=== PATIENT | female | born 1980 | race Caucasian/White ===

== ENCOUNTER 2016-10-07 08:07 | Emergency (ER) | payer MEDICARE, MEDICAID ==
[2016-10-07 08:14] VITALS: BP 131/81
[2016-10-07] MEDS ORDERED: Albuterol/Ipratropium NEB.SOL* Albuterol 2.5 MG/Ipratropium 0.5 MG 3 ML INH ONE (08:18)
--- NOTE | 2016-10-07 08:32 | UC ---
Respiratory Complaint HPI - HPI Summary HPI Summary: She has hx of wheezing and possible copd. she is a smoker. she has been on albuterol and steroid inhaler but ran out of both about 2-3 days ago. She gets these medications from urgent care and denies having a regular PCP. Her last exacerbation was months ago and she had remaining prednisone which she has taken today for a total of 60mg. She denies prior PE or dvt. Father has a hx of dvt but that is the only family member with clots. She has not had any prolonged car or plane trips. She is not on OCP. she denies productive cough or hemoptysis. no fever or chest pain. no hx of heart disease. - History of Current Complaint Chief Complaint: UCRespiratory Stated Complaint: TROUBLE BREATHING Time Seen by Provider: 10/07/16 08:18 Hx Obtained From: Patient Hx Last Menstrual Period: 09/28/16 ?: No Onset/Duration: Gradual Onset Timing: Constant Severity Initially: Mild Severity Currently: Moderate Character: Cough: Nonproductive Aggravating Factors: Deep Breaths Alleviating Factors: Nothing Associated Signs And Symptoms: Positive: Dyspnea, Wheezing, Hoarseness. Negative: Fever, Chills, Pleuritic Chest Pain, Hemoptysis, Dizziness, Calf Pain , Calf Swelling, Edema - Risk Factors Pulmonary Embolism Risk Factors: Smoking - Allergies/Home Medications Allergies/Adverse Reactions: Allergies Allergy/AdvReac Type Severity Reaction Status Date / Time Sumatriptan [From Imitrex] Allergy Severe throat Verified 10/07/16 08:14 closing Cefaclor [From Ceclor] Allergy Mild Rash Verified 10/07/16 08:14 Latex Allergy Rash Verified 10/07/16 08:14 Home Medications: Home Medications predniSONE TAB* [Deltasone TAB*] 60 mg PO DAILY 10/07/16 [History Confirmed ] PMH/Surg Hx/FS Hx/Imm Hx Endocrine History Of: Denies: Diabetes, Thyroid Disease, Hyperthyroidism, Hypothyroidism, Dyslipidemia Cardiovascular History Of: Denies: Cardiac Disorders, Hypertension, Pacemaker/ICD, Myocardial Infarction , Congestive Heart Failure, Atrial Fibrillation, Deep Vein Thrombosis, Bleeding Disorders Respiratory History Of: Reports: COPD, Asthma, Pneumonia - Last episode was June of 2015. Denies: Bronchitis GI/ History Of: Denies: Gastroesophageal Reflux, Ulcer, Gastrointestinal Bleed, Gall Bladder Disease, Kidney Stones, Diverticulitis, Renal Disease, Urosepsis Neurological History Of: Denies: TIA, CVA, Dementia, Seizures, Migraine Psychological History Of: Reports: Anxiety - She denies any anxiety or depression or other mental illness., Depression Denies: Bipolar Disorder, Schizophrenia, Post Traumatic Stress Disorder Cancer History Of: Denies: Lung Cancer, Colorectal Cancer, Breast Cancer, Prostate Cancer, Cervical Cancer Other History Of: Negative For: HIV, Hepatitis B, Hepatitis C - Surgical History Surgical History: Yes Surgery Procedure, Year, and Place: Tubal Ligation, 2009, [facility] - Family History Known Family History: Positive: Cardiac Disease, Hypertension, Diabetes, Respiratory Disease - Mom with COPD, Other - COPD Family History: Mother had COPD - Social History Alcohol Use: None Substance Use Type: None Substance Use Comment - Amount & Last Used: Denies use of prescription painkillers. Smoking Status (MU): Light Every Day Tobacco Smoker Type: Cigarettes Amount Used/How Often: 1/5 PPD Length of Time of Smoking/Using Tobacco: 22 Years Have You Smoked in the Last Year: Yes Household Exposure Type: Cigarettes - Immunization History Most Recent Influenza Vaccination: 02/20/15 Hx Tetanus, Diphtheria Vaccination: Yes Vaccination Up to Date: Yes Review of Systems All Other Systems Reviewed And Are Negative: Yes Physical Exam Triage Information Reviewed: Yes Appearance: Pain Distress - she has visible tachypnea without severe distress. She has no retractions and is able to talk in full sentences. Vital Signs: Initial Vital Signs Temp 98.5 F 10/07/16 08:11 Pulse 100 10/07/16 08:11 Resp 18 10/07/16 08:11 BP 131/81 10/07/16 08:11 Pulse Ox 100 10/07/16 08:11 Vital Signs Reviewed: Yes Eyes: Negative: Conjunctiva Clear, Conjunctiva Inflamed ENT: Positive: Normal ENT inspection, Hearing grossly normal. Negative: Pharyngeal erythema, Nasal congestion Neck exam: Normal Neck: Positive: Supple, Nontender, No Lymphadenopathy, Other: - no jvd. Respiratory: Positive: Chest non-tender, No accessory muscle use, Wheezing, Expiration, Other: - she is using nebulizer and is moving good air page. HR currently 100.. Negative: Decreased breath sounds, Accessory muscle use, Crackles, Rhonchi, Stridor Cardiovascular: Positive: No Murmur, Pulses Normal, Brisk Capillary Refill, Tachycardia Abdominal Exam: Normal Abdomen Description: Positive: Nontender, No Organomegaly, Soft Musculoskeletal Exam: Normal Musculoskeletal: Positive: Strength Intact, ROM Intact, No Edema, Other: - page calves no swelling, tenderness, venous engorgement and neg homans. Neurological: Positive: Alert, Muscle Tone Normal. Negative: Fatigued Psychological Exam: Normal Skin Exam: Normal UC Diagnostic Evaluation - Laboratory O2 Sat by Pulse Oximetry: 100 Respiratory Course/Dx - Course Course Of Treatment: we have considered PE or cardiac etiology but without any recent travel or very significant risk factors for PE, this is highly unlikely. she states this feels similar to prior episode of chest tightness a few months ago. Without any cardiac ischemic equivalents besides the sob, this is not c/w with cardiac etiology as well. she feels better after breathing treament and we will treat her for acute bronchitis with reactive airway disease. she will return tomorrow for re evaluation as she has no pcp. i will make referral to pcp as well. - Differential Dx/Diagnosis Differential Diagnosis/HQI/PQRI: Airway Obstruction, Foreign Body, Aspiration, Asthma, Bronchitis, CHF, Pulmonary Edema, Exacerbation Of COPD, Influenza, Laryngitis, Lower Resp Infection, Pneumothorax, Pulmonary Embolism, Sinusitis, Tuberculosis Provider Diagnoses: reactive airway disease. wheezing. sob. Discharge - Discharge Plan Condition: Good Disposition: HOME Prescriptions: Albuterol 2.5MG/3ML (0.083%)* [Ventolin 2.5 MG/3 ML NEB.MICHAEL*] 2.5 mg INH Q6H PRN #20 neb.michael PRN Reason: Wheezing Albuterol HFA INHALER* [Ventolin HFA Inhaler*] 1 - 2 puff INH Q6H PRN #1 mdi PRN Reason: Wheezing Azithromyxin MANOLO (NF) [Z-Manolo (Zithromax) 250 mg tabs #6] 2 tab PO .TODAY, THEN 1 DAILY #6 tab Fluticasone-Salmeterol 250-50* [Advair Diskus 250-50*] 1 puff INH BID #1 diskus predniSONE TAB* [Deltasone TAB*] 40 mg PO DAILY #20 tab Referrals: [facility] [Outside] Cheo Hurst MD [Primary Care Provider] - 2 Days (If you still have him as your primary care provider. )
== END 2016-10-07 08:49 | disposition home or self-care (01) ==
LOC: UCCORT 08:07
DX: J45.909 Unspecified asthma, uncomplicated (principal); R06.02 Shortness of breath; Z88.1 Allergy status to other antibiotic agents; Z88.8 Allergy status to other drugs, medicaments and biological substances; Z91.040 Latex allergy status; F41.9 Anxiety disorder, unspecified; F17.210 Nicotine dependence, cigarettes, uncomplicated
CPT/HCPCS: 99212; A9270-GY; G0463

== ENCOUNTER 2017-01-19 11:01 | Emergency (ER) | payer MEDICARE, MEDICAID ==
[2017-01-19 11:53] VITALS: BP 114/76
--- NOTE | 2017-01-19 12:41 | UC ---
Respiratory Complaint HPI - HPI Summary HPI Summary: Pt presents with c/o chest congestion, cough, generalized malaise and history of COPD. P thas let RX for COPd medications end and is requesting refill on rescue inhaler and advair. Pt is scheduled to see new PCP in January - History of Current Complaint Chief Complaint: UCRespiratory Stated Complaint: COUGH Time Seen by Provider: 01/19/17 11:39 Hx Obtained From: Patient Hx Last Menstrual Period: 12/28/16 ?: No Onset/Duration: Gradual Onset, Lasting Weeks, Still Present, Worse Since - onset Timing: Constant Severity Initially: Mild Severity Currently: Moderate Character: Cough: Nonproductive Aggravating Factors: Exertion, Deep Breaths, Recumbent Position Alleviating Factors: Nothing Associated Signs And Symptoms: Positive: Wheezing, URI, Nasal Congestion - Risk Factors Pulmonary Embolism Risk Factors: Negative Cardiac Risk Factors: Smoking Pseudomonas Risk Factors: Chronic Lung Disease - COPD Tuberculosis Risk Factors: Smoking - Allergies/Home Medications Allergies/Adverse Reactions: Allergies Allergy/AdvReac Type Severity Reaction Status Date / Time Sumatriptan [From Imitrex] Allergy Severe throat Verified 01/19/17 11:39 closing Cefaclor [From Ceclor] Allergy Mild Rash Verified 01/19/17 11:39 Latex Allergy Rash Verified 01/19/17 11:39 Home Medications: Home Medications Venlafaxine CAP (NF) [Effexor CAP (NF)] 75 mg PO DAILY 01/19/17 [History Confirmed 01/19/17] Venlafaxine CAP (NF) [Effexor CAP (NF)] 150 mg PO DAILY 01/19/17 [History Confirmed 01/19/17] PMH/Surg Hx/FS Hx/Imm Hx Previously Healthy: No - COPD Respiratory History: COPD Psychological History: Depression Other History Of: Negative For: HIV, Hepatitis B, Hepatitis C - Surgical History Surgical History: Yes Surgery Procedure, Year, and Place: Tubal Ligation, 2009, [facility] - Family History Known Family History: Positive: Cardiac Disease, Hypertension, Diabetes, Respiratory Disease - Mom with COPD, Other - COPD Family History: Mother had COPD - Social History Occupation: Unemployed Lives: With Family Alcohol Use: None Substance Use Type: None, Prescribed Substance Use Comment - Amount & Last Used: Denies use of prescription painkillers. Smoking Status (MU): Light Every Day Tobacco Smoker Type: Cigarettes Amount Used/How Often: 3/4 PPD Length of Time of Smoking/Using Tobacco: 22 Years Have You Smoked in the Last Year: Yes Household Exposure Type: Cigarettes - Immunization History Most Recent Influenza Vaccination: 02/20/15 Hx Tetanus, Diphtheria Vaccination: Yes Vaccination Up to Date: Yes Review of Systems Constitutional: Fatigue Skin: Negative Eyes: Negative ENT: Other - nasal congestion Respiratory: Cough, Other - chest congestion Cardiovascular: Negative Gastrointestinal: Negative Genitourinary: Negative Motor: Negative Neurovascular: Negative Musculoskeletal: Negative Neurological: Negative Psychological: Negative All Other Systems Reviewed And Are Negative: Yes Physical Exam Triage Information Reviewed: Yes Appearance: Ill-Appearing Vital Signs: Initial Vital Signs Temp 98.8 F 01/19/17 11:45 Pulse 94 01/19/17 11:45 Resp 18 01/19/17 11:45 BP 114/76 01/19/17 11:45 Pulse Ox 96 01/19/17 11:45 Vital Signs Reviewed: Yes Eye Exam: Normal ENT Exam: Other ENT: Positive: Nasal congestion Dental Exam: Normal Neck exam: Normal Respiratory Exam: Other Respiratory: Positive: Decreased breath sounds - bilateral bases, Wheezing - throughout all Cardiovascular Exam: Normal Musculoskeletal Exam: Normal Neurological Exam: Normal Psychological Exam: Normal Skin Exam: Normal UC Diagnostic Evaluation - Laboratory O2 Sat by Pulse Oximetry: 96 Respiratory Course/Dx - Differential Dx/Diagnosis Differential Diagnosis/HQI/PQRI: Bronchitis, Exacerbation Of COPD Provider Diagnoses: bronchitis. exacerbation of COPD Discharge - Discharge Plan Condition: Stable Disposition: HOME Prescriptions: Albuterol HFA INHALER* [Ventolin HFA Inhaler*] 1 - 2 puff INH Q6H PRN #1 mdi PRN Reason: Wheezing Azithromycin TAB* [Zithromax TAB (Z-BLAISE) 250 mg #6 tabs] 2 tab PO .TODAY, THEN 1 DAILY #1 blaise Benzonatate CAP* [Tessalon 100 MG CAP*] 100 mg PO Q8H PRN #30 cap PRN Reason: Cough Fluticasone-Salmeterol 250-50* [Advair Diskus 250-50*] 1 puff INH BID #1 diskus Ipratropium 0.5MG/2.5ML NEB* [Atrovent 0.5 MG NEB.MICHAEL*] 0.5 mg INH QID PRN #1 meb.soln PRN Reason: Sob/Wheezing predniSONE TAB* [Deltasone TAB*] 30 mg PO DAILY #9 tab Patient Education Materials: Acute Bronchitis (ED) Referrals: Cheo Hurst MD [Primary Care Provider] - As Soon As Possible Additional Instructions: Please follow up with your PCP or return to clinic as needed.
== END 2017-01-19 12:39 | disposition home or self-care (01) ==
LOC: UCCORT 11:01
DX: J44.1 Chronic obstructive pulmonary disease with (acute) exacerbation (principal); J44.0 Chronic obstructive pulmonary disease with (acute) lower respiratory infection; J40 Bronchitis, not specified as acute or chronic; F32.9 Major depressive disorder, single episode, unspecified; Z83.6 Family history of other diseases of the respiratory system; F17.210 Nicotine dependence, cigarettes, uncomplicated; Z88.1 Allergy status to other antibiotic agents; Z88.8 Allergy status to other drugs, medicaments and biological substances
CPT/HCPCS: 99212; G0463

== ENCOUNTER 2017-10-05 09:29 | Emergency (ER) | payer MEDICARE, MEDICAID ==
[2017-10-05 10:11] VITALS: BP 126/91
--- NOTE | 2017-10-05 10:51 | UC ---
Ear Complaint HPI - HPI Summary HPI Summary: Pt presents with c/o of right ear pain X 1 week. Pt denies URI symptoms, injury , drainage, or prior history of OM. Pt also is requesting refill on seroquel. Pt had called yesterday regarding request for refill and was told that we would not refill this medication. Pt stated that she was discharged from her PCP and from [facility] services due to no shows for multiple appointments. - History of Current Complaint Stated Complaint: R EAR PAIN Time Seen by Provider: 10/05/17 10:07 Hx Obtained From: Patient Hx Last Menstrual Period: 09/29/17 ?: No Onset/Duration: Sudden Onset, Lasting Days - 7 Severity Initially: Mild Severity Currently: Mild Pain Intensity: 2 Alleviating Factors: Nothing - Allergies/Home Medications Allergies/Adverse Reactions: Allergies Allergy/AdvReac Type Severity Reaction Status Date / Time cefaclor Allergy Rash Verified 10/05/17 10:08 latex Allergy Rash Verified 10/05/17 10:08 sumatriptan Allergy See Comment Verified 10/05/17 10:08 PMH/Surg Hx/FS Hx/Imm Hx Previously Healthy: Yes Psychological History: Depression Other History Of: Negative For: HIV, Hepatitis B, Hepatitis C - Surgical History Surgical History: Yes Surgery Procedure, Year, and Place: Tubal Ligation, 2009, [facility] - Family History Known Family History: Positive: Cardiac Disease, Hypertension, Diabetes, Respiratory Disease - Mom with COPD, Other - COPD Family History: Mother had COPD - Social History Occupation: Unemployed Lives: With Family Alcohol Use: None Substance Use Type: None Substance Use Comment - Amount & Last Used: Denies use of prescription painkillers. Smoking Status (MU): Heavy Every Day Tobacco Smoker Type: Cigarettes Amount Used/How Often: 3/4 PPD Length of Time of Smoking/Using Tobacco: 22 Years Have You Smoked in the Last Year: Yes Household Exposure Type: Cigarettes - Immunization History Most Recent Influenza Vaccination: 02/20/15 Hx Tetanus, Diphtheria Vaccination: Yes Vaccination Up to Date: Yes Review of Systems Constitutional: Negative Skin: Negative Eyes: Negative ENT: Ear Ache Respiratory: Negative Cardiovascular: Negative Gastrointestinal: Negative Genitourinary: Negative Motor: Negative Neurovascular: Negative Musculoskeletal: Negative Neurological: Negative Psychological: Negative Is Patient Immunocompromised?: No All Other Systems Reviewed And Are Negative: Yes Physical Exam Triage Information Reviewed: Yes Appearance: Well-Appearing Vital Signs: Initial Vital Signs Temp 98.1 F 10/05/17 10:01 Pulse 85 10/05/17 10:01 Resp 19 10/05/17 10:01 BP 126/91 10/05/17 10:01 Pulse Ox 98 10/05/17 10:01 Vital Signs Reviewed: Yes Eye Exam: Normal ENT Exam: Normal ENT: Positive: Nasal congestion Dental Exam: Other Dental: Positive: Other: - full set of dentures Neck exam: Normal Respiratory Exam: Normal Cardiovascular Exam: Normal Musculoskeletal Exam: Normal Neurological Exam: Normal Psychological Exam: Normal Skin Exam: Normal Ear Complaint Course/Dx - Course Course Of Treatment: Pt requested seroquel refill and I explained to her that I would not refill thsi medication. I called, [facility], [facility] and both facilities stated that she had not been compliant with her appointments and was discharged from their practices. Both stated that she could be reinstated and that they would see her as soon aspossible nad consider refilling her medication if she reestablished care with them. I also directed her to the ER and to [facility]. The pt becam increasingly agitated and left the exam room prior to discharge instructions were written. - Differential Dx/Diagnosis Differential Diagnosis/HQI/PQRI: Otitis Media, URI Provider Diagnoses: right EAr ache. medication refill request Discharge - Sign-Out/Discharge Documenting (check all that apply): Discharge/Admit/Transfer - Discharge Plan Condition: Stable Disposition: HOME Patient Education Materials: Earache (ED) Referrals: No Primary Care Phys,NOPCP [Primary Care Provider] - Crystal Granda MD [Medical Doctor] - Additional Instructions: Please establish care with a PCP and follow up with [facility]. We are unable to refill your prescription as requested and suggest that you seek an emergency refill at the Emergency Department or at [facility]. - Billing Disposition and Condition Condition: STABLE Disposition: HOME
== END 2017-10-05 10:53 | disposition home or self-care (01) ==
LOC: UCCORT 09:29
DX: H92.01 Otalgia, right ear (principal); Z76.0 Encounter for issue of repeat prescription; Z91.19 Patient's noncompliance with other medical treatment and regimen; Z88.1 Allergy status to other antibiotic agents; Z88.8 Allergy status to other drugs, medicaments and biological substances; F17.210 Nicotine dependence, cigarettes, uncomplicated
CPT/HCPCS: 99212; G0463

== ENCOUNTER 2017-12-18 16:10 | Emergency (ER) | payer MEDICARE, MEDICAID ==
[2017-12-18 16:59] VITALS: BP 110/76
--- NOTE | 2017-12-18 17:08 | UC ---
Dizzy HPI HPI Summary: C/O dizzy not sleeping in the past week. Heart racing and mind racing. Sister this past week. Ran out of Venlafaxine and seroquel. - History Of Current Complaint Chief Complaint: UCDizziness Stated Complaint: LIGHT HEADED Time Seen by Provider: 12/18/17 17:01 Hx Obtained From: Patient Hx Last Menstrual Period: 11/25/17 ?: No Onset/Duration: Sudden Onset, Lasting Weeks - 1, Still Present Timing: Constant Severity Initially: Mild Severity Currently: Mild Pain Intensity: 1 Character: Dizzy Aggravating Factor(s): Nothing Alleviating Factor(s): Nothing Associated Signs And Symptoms: Positive: SOB, Palpitations, Change In Medication - ran out of medication. - Allergies/Home Medications Allergies/Adverse Reactions: Allergies Allergy/AdvReac Type Severity Reaction Status Date / Time cefaclor Allergy Rash Verified 10/05/17 10:08 latex Allergy Rash Verified 10/05/17 10:08 sumatriptan Allergy See Comment Verified 10/05/17 10:08 avoids opiodes Allergy Hx of abuse Uncoded 12/18/17 17:00 Home Medications: Home Medications Loratadine [Claritin 10 MG CAP] 10 mg PO BID 12/18/17 [History Confirmed ] Melatonin 3 mg PO QPM PRN 12/18/17 [History Confirmed 12/18/17] PMH/Surg Hx/FS Hx/Imm Hx Respiratory History: COPD Psychological History: Anxiety Other History Of: Negative For: HIV, Hepatitis B, Hepatitis C - Surgical History Surgical History: Yes Surgery Procedure, Year, and Place: Tubal Ligation, 2009, [facility] - Family History Known Family History: Positive: Cardiac Disease, Hypertension, Diabetes, Respiratory Disease - Mom with COPD, Other - COPD Family History: Mother had COPD - Social History Occupation: Disabled Lives: With Family Alcohol Use: None Substance Use Type: None Substance Use Comment - Amount & Last Used: Denies use of prescription painkillers. Smoking Status (MU): Heavy Every Day Tobacco Smoker Type: Cigarettes Amount Used/How Often: 3/4 PPD Length of Time of Smoking/Using Tobacco: 22 Years Have You Smoked in the Last Year: Yes Household Exposure Type: Cigarettes - Immunization History Most Recent Influenza Vaccination: 02/20/15 Hx Tetanus, Diphtheria Vaccination: Yes Vaccination Up to Date: Yes Review of Systems Constitutional: Chills - and then hot flashes Respiratory: Shortness Of Breath Cardiovascular: Palpitations Psychological: Anxious - worse with panic attacks. Is Patient Immunocompromised?: No All Other Systems Reviewed And Are Negative: Yes Physical Exam Triage Information Reviewed: Yes Appearance: Well-Appearing, No Pain Distress, Obese Vital Signs: Initial Vital Signs Temp 98.6 F 12/18/17 16:47 Pulse 83 12/18/17 16:47 Resp 18 12/18/17 16:47 BP 110/76 12/18/17 16:47 Pulse Ox 98 12/18/17 16:47 Vital Signs Reviewed: Yes Eyes: Positive: Conjunctiva Inflamed Neck exam: Normal Respiratory Exam: Normal Cardiovascular Exam: Normal Musculoskeletal Exam: Normal Neurological Exam: Normal Psychological: Positive: Other: - Anxious Skin Exam: Normal Dizzy Course/Dx - Differential Dx/Diagnosis Differential Diagnosis/HQI/PQRI: Anxiety, Benign Paroxysmal Positional Vertigo, Hyperventilation Provider Diagnoses: Seratonin withdrawal syndrome Discharge - Sign-Out/Discharge Documenting (check all that apply): Patient Departure - Discharge Plan Condition: Stable Disposition: HOME Prescriptions: QUEtiapine TAB* [Seroquel 300 MG TAB*] 600 mg PO BEDTIME #60 tab Venlafaxine ER (NF) [Effexor ER (NF)] 300 mg PO DAILY #60 cap Patient Education Materials: Generalized Anxiety Disorder (ED), Venlafaxine ( By mouth) Referrals: No Primary Care Phys,NOPCP [Primary Care Provider] - Additional Instructions: It is acting like seratononin withdrawal syndrome. - Billing Disposition and Condition Condition: STABLE Disposition: Home
== END 2017-12-18 17:23 | disposition home or self-care (01) ==
LOC: UCCORT 16:10
DX: F19.939 Other psychoactive substance use, unspecified with withdrawal, unspecified (principal); Z88.1 Allergy status to other antibiotic agents; Z88.8 Allergy status to other drugs, medicaments and biological substances; F41.9 Anxiety disorder, unspecified; F17.210 Nicotine dependence, cigarettes, uncomplicated
CPT/HCPCS: 99212; G0463

== ENCOUNTER 2017-12-23 07:03 | Emergency (ER) | payer MEDICARE, MEDICAID ==
[2017-12-23 07:25] VITALS: BP 130/88
--- NOTE | 2017-12-23 07:25 | UC ---
Respiratory Complaint HPI - HPI Summary HPI Summary: 37 F with cough and congestion. Here previously last year for same Sx but not as bad this time. Previously given steroids, inhalers and antibiotics and did well. Sx present for 2-3 days. No fever. Has had fatigue and cough that is more productive. Still smoking. - History of Current Complaint Stated Complaint: COUGH/CONGESTION Hx Obtained From: Patient Hx Last Menstrual Period: 11/25/17 Onset/Duration: Gradual Onset Timing: Constant Severity Initially: Mild Severity Currently: Moderate Character: Cough: Nonproductive Alleviating Factors: Nothing Associated Signs And Symptoms: Positive: URI, Nasal Congestion, Hoarseness, Sinus Discomfort - Allergies/Home Medications Allergies/Adverse Reactions: Allergies Allergy/AdvReac Type Severity Reaction Status Date / Time cefaclor Allergy Rash Verified 10/05/17 10:08 latex Allergy Rash Verified 10/05/17 10:08 sumatriptan Allergy See Comment Verified 10/05/17 10:08 avoids opioids Allergy hx of abuse Uncoded 12/18/17 17:06 PMH/Surg Hx/FS Hx/Imm Hx Psychological History: Anxiety, Depression Other History Of: Negative For: HIV, Hepatitis B, Hepatitis C - Surgical History Surgical History: Yes Surgery Procedure, Year, and Place: Tubal Ligation, 2009, [facility] - Family History Known Family History: Positive: Cardiac Disease, Hypertension, Diabetes, Respiratory Disease - Mom with COPD, Other - COPD Family History: Mother had COPD - Social History Occupation: Unemployed Alcohol Use: None Substance Use Type: None Substance Use Comment - Amount & Last Used: Denies use of prescription painkillers. Smoking Status (MU): Heavy Every Day Tobacco Smoker Type: Cigarettes Amount Used/How Often: 3/4 PPD Length of Time of Smoking/Using Tobacco: 22 Years Have You Smoked in the Last Year: Yes Household Exposure Type: Cigarettes - Immunization History Most Recent Influenza Vaccination: 02/20/15 Hx Tetanus, Diphtheria Vaccination: Yes Vaccination Up to Date: Yes Review of Systems Constitutional: Fatigue ENT: Sore Throat, Ear Ache, Nasal Discharge, Sinus Congestion, Sinus Pain/ Tenderness Respiratory: Cough Is Patient Immunocompromised?: No All Other Systems Reviewed And Are Negative: Yes Physical Exam Triage Information Reviewed: Yes Appearance: Well-Appearing, No Pain Distress, Well-Nourished Vital Signs Reviewed: Yes Eye Exam: Normal ENT Exam: Normal Dental Exam: Normal Neck exam: Normal Neck: Positive: 1 Respiratory Exam: Normal Respiratory: Positive: Chest non-tender, No accessory muscle use, Decreased breath sounds, Wheezing, Expiration. Negative: Respiratory distress Cardiovascular Exam: Normal Musculoskeletal Exam: Normal Neurological Exam: Normal Psychological Exam: Normal Skin Exam: Normal Respiratory Course/Dx - Course Course Of Treatment: Treat as COPD exac / per pt Azithromycin works well she requests it she is aware of SE. start steroids . get PCP yaquelin. Discharged from previous PCP for no shows. Stop smoking ! - Differential Dx/Diagnosis Differential Diagnosis/HQI/PQRI: Bronchitis, Lower Resp Infection, Sinusitis Provider Diagnoses: COPD exacerbation. Bronchitis. Tobacco use disorder Discharge - Sign-Out/Discharge Documenting (check all that apply): Patient Departure - Discharge Plan Condition: Good Disposition: HOME Prescriptions: Albuterol inh POWDER (NF) [Proair Respiclick] 1 puff INH Q8HR PRN #1 mdi PRN Reason: Sob/Wheezing Azithromyxin BLAISE (NF) [Z-Blaise (Zithromax) 250 mg tabs #6] 2 tab PO .TODAY, THEN 1 DAILY #6 tab predniSONE [Prednisone 20 MG TAB] 20 mg PO DAILY #5 tablet Patient Education Materials: Acute Bronchitis (ED), COPD (Chronic Obstructive Pulmonary Disease) (ED) Referrals: No Primary Care Phys,NOPCP [Primary Care Provider] - 4 Days Additional Instructions: Please establish care with a PCP and also please quit smoking - Billing Disposition and Condition Condition: GOOD Disposition: Home
--- NOTE | 2017-12-23 07:58 | RAD ---
HISTORY: cough / copd COMPARISONS: February 14, 2016 VIEWS: 4: Frontal dual-energy and lateral views of the chest. FINDINGS: CARDIOMEDIASTINAL SILHOUETTE: The cardiomediastinal silhouette is normal. AMADO: The amado are normal. PLEURA: The costophrenic angles are sharp. No pleural abnormalities are noted. LUNG PARENCHYMA: There is minimal linear opacification of the left lung base. ABDOMEN: The upper abdomen is clear. There is no subphrenic gas. BONES AND SOFT TISSUES: No bone or soft tissue abnormalities are noted. OTHER: None. IMPRESSION: MINIMAL LINEAR ATELECTASIS VERSUS PLEUROPARENCHYMAL SCARRING OF THE LEFT LUNG BASE.
== END 2017-12-23 08:01 | disposition home or self-care (01) ==
LOC: UCCORT 07:03
DX: J44.1 Chronic obstructive pulmonary disease with (acute) exacerbation (principal); F17.210 Nicotine dependence, cigarettes, uncomplicated; Z88.1 Allergy status to other antibiotic agents; Z88.8 Allergy status to other drugs, medicaments and biological substances
CPT/HCPCS: 71046; 99212; G0463

== ENCOUNTER 2018-01-16 14:35 | Emergency (ER) | payer MEDICARE, MEDICAID ==
[2018-01-16 16:01] VITALS: BP 129/77
--- NOTE | 2018-01-16 16:36 | UC ---
Respiratory Complaint HPI - HPI Summary HPI Summary: Patient states that she started having dry cough for the past 8 days. She is a smoker but has curved her smoking during this time. She is currently smoking about 3-4 cigarettes a day. Denies chills, fever, wheezing. She ran out of her albuterol inhaler several days ago. She states she has an episode of bronchitis every few months. She has taken amoxicillin in the past without any reactions. - History of Current Complaint Chief Complaint: UCRespiratory Stated Complaint: UPPER RESPIRATORY COMPLAINT Time Seen by Provider: 01/16/18 16:12 Hx Obtained From: Patient Hx Last Menstrual Period: 12/30/17 ?: No Onset/Duration: Gradual Onset, Lasting Days Severity Initially: Mild Severity Currently: Moderate Pain Intensity: 3 Associated Signs And Symptoms: Positive: Negative Related History: Seasonal Allergies - Risk Factors Pulmonary Embolism Risk Factors: Negative Cardiac Risk Factors: Smoking Tuberculosis Risk Factors: Negative - Allergies/Home Medications Allergies/Adverse Reactions: Allergies Allergy/AdvReac Type Severity Reaction Status Date / Time cefaclor Allergy Rash Verified 01/16/18 16:01 latex Allergy Rash Verified 01/16/18 16:01 sumatriptan Allergy See Comment Verified 01/16/18 16:01 avoids opioids Allergy hx of abuse Uncoded 01/16/18 16:01 PMH/Surg Hx/FS Hx/Imm Hx Previously Healthy: Yes Respiratory History: COPD Psychological History: Depression Other History Of: Negative For: HIV, Hepatitis B, Hepatitis C - Surgical History Surgical History: Yes Surgery Procedure, Year, and Place: Tubal Ligation, 2009, [facility] - Family History Known Family History: Positive: Cardiac Disease, Hypertension, Diabetes, Respiratory Disease - Mom with COPD, Other - COPD Family History: Mother had COPD - Social History Alcohol Use: None Substance Use Type: None Substance Use Comment - Amount & Last Used: Denies use of prescription painkillers. Smoking Status (MU): Heavy Every Day Tobacco Smoker Type: Cigarettes Amount Used/How Often: 3/4 PPD Length of Time of Smoking/Using Tobacco: 22 Years Have You Smoked in the Last Year: Yes Household Exposure Type: Cigarettes - Immunization History Most Recent Influenza Vaccination: 02/20/15 Hx Tetanus, Diphtheria Vaccination: Yes Vaccination Up to Date: Yes Review of Systems ENT: Sinus Congestion Respiratory: Shortness Of Breath, Cough All Other Systems Reviewed And Are Negative: Yes Physical Exam - Summary Physical Exam Summary: coughing all throughout physical exam Triage Information Reviewed: Yes Appearance: Ill-Appearing, Obese Vital Signs: Initial Vital Signs Temp 97.9 F 01/16/18 15:56 Pulse 96 01/16/18 15:56 Resp 20 01/16/18 15:56 BP 129/77 01/16/18 15:56 Pulse Ox 98 01/16/18 15:56 Vital Signs Reviewed: Yes Eyes: Positive: Conjunctiva Clear ENT: Positive: Hearing grossly normal, Pharynx normal, TMs normal, Uvula midline Neck: Positive: Supple, Nontender, No Lymphadenopathy Respiratory: Positive: Lungs clear, Normal breath sounds, No respiratory distress Cardiovascular: Positive: RRR, No Murmur, Pulses Normal, Brisk Capillary Refill Abdomen Description: Positive: Nontender UC Diagnostic Evaluation - Laboratory O2 Sat by Pulse Oximetry: 98 Respiratory Course/Dx - Course Course Of Treatment: 37-year-old patient with history of COPD and current smoker , who has been coughing for the past 8 days. Denies chills or fever. We'll start treatment for acute bronchitis. Instructed to take amoxicillin as prescribed. Refill of her albuterol inhaler. Start Benzonatate capsules as needed for cough. - Differential Dx/Diagnosis Provider Diagnoses: acute bronchitis Discharge - Sign-Out/Discharge Documenting (check all that apply): Patient Departure All imaging exams completed and their final reports reviewed: No Studies - Discharge Plan Condition: Stable Disposition: HOME Prescriptions: Albuterol HFA INHALER* [Ventolin HFA Inhaler*] 1 puff INH Q6H PRN #1 mdi PRN Reason: Shortness Of Breath Amoxicillin PO (*) [Amoxicillin 875 MG (*)] 875 mg PO BID 7 Days #14 tab Benzonatate CAP* [Tessalon 100 MG CAP*] 100 mg PO TID PRN 7 Days #21 cap PRN Reason: Cough Patient Education Materials: Acute Bronchitis (ED), Albuterol (By breathing), Amoxicillin (By mouth) Referrals: No Primary Care Phys,NOPCP [Primary Care Provider] - [facility] [place]] - Billing Disposition and Condition Condition: STABLE Disposition: Home
== END 2018-01-16 16:37 | disposition home or self-care (01) ==
LOC: UCCORT 14:35
DX: J20.9 Acute bronchitis, unspecified (principal); J44.9 Chronic obstructive pulmonary disease, unspecified; F17.210 Nicotine dependence, cigarettes, uncomplicated
CPT/HCPCS: 99212; G0463

== ENCOUNTER 2018-02-27 09:02 | Emergency (ER) | payer MEDICARE, MEDICAID ==
[2018-02-27 09:30] VITALS: BP 131/96
--- NOTE | 2018-02-27 09:34 | UC ---
Respiratory Complaint HPI - HPI Summary HPI Summary: Patient presents to urgent care reporting 7 days of progressive congestion and cough. Patient with thick yellow sputum. Patient states she feels wheezy. Patient's taken DayQuil and NyQuil with short-term relief. Patient reports tactile fevers and chills. No chest pain. No abdominal pain. No nausea vomiting. Patient reports decreased appetite. Patient without sick contacts. Patient does smoke one pack per day. Patient did not get the flu shot this year Patient's medications reviewed this visit - History of Current Complaint Chief Complaint: UCRespiratory Stated Complaint: UPPER RESPIRATORY, COUGH Time Seen by Provider: 02/27/18 09:22 Hx Obtained From: Patient Hx Last Menstrual Period: 12/30/17 ?: No Onset/Duration: Gradual Onset Severity Initially: Mild Severity Currently: Mild Pain Intensity: 3 - Allergies/Home Medications Allergies/Adverse Reactions: Allergies Allergy/AdvReac Type Severity Reaction Status Date / Time cefaclor Allergy Rash Verified 02/27/18 09:26 latex Allergy Rash Verified 02/27/18 09:26 sumatriptan Allergy See Comment Verified 02/27/18 09:26 avoids opioids Allergy hx of abuse Uncoded 02/27/18 09:26 Home Medications: Home Medications D-Methorphan/PE/Acetaminophen [Daytime Cold-Flu Relief Sftgl] 1 each PO ONCE 12/08 [History Confirmed 02/27/18] PMH/Surg Hx/FS Hx/Imm Hx Previously Healthy: Yes Psychological History: Anxiety, Depression, Other Other Psychological History: substance use disorder Other History Of: Negative For: HIV, Hepatitis B, Hepatitis C - Surgical History Surgical History: Yes Surgery Procedure, Year, and Place: Tubal Ligation, 2009, [facility] - Family History Known Family History: Positive: Cardiac Disease, Hypertension, Diabetes, Respiratory Disease - Mom with COPD, Other - COPD Family History: Mother had COPD - Social History Occupation: Disabled Lives: With Family Alcohol Use: None Substance Use Type: None Substance Use Comment - Amount & Last Used: Denies use of prescription painkillers. Smoking Status (MU): Heavy Every Day Tobacco Smoker Type: Cigarettes Amount Used/How Often: 1 PPD Length of Time of Smoking/Using Tobacco: 22 Years Have You Smoked in the Last Year: Yes Household Exposure Type: Cigarettes - Immunization History Most Recent Influenza Vaccination: 02/20/15 Hx Tetanus, Diphtheria Vaccination: Yes Vaccination Up to Date: Yes Review of Systems Constitutional: Fever, Fatigue Respiratory: Shortness Of Breath, Cough All Other Systems Reviewed And Are Negative: Yes Physical Exam - Summary Physical Exam Summary: Vital Signs Reviewed: Yes A+Ox3, coarse cough Eyes: Conjunctiva Clear, TAMMY. EOM intact and full ENT: Hearing grossly normal TM x 2 clear, trubinates inflammed and boggy, + PND, mmoist, uvula midline, no exudate, no erythema Neck: Positive: Supple Respiratory: Positive: No respiratory distress, No accessory muscle use, coarse cough + scattered wheeze insp/exp pt coughs with talking Cardiovascular: RRR nl s1, s2 no m/r CBT <2 sec abd soft + BS nt/nd no guarding, no distension Musculoskeletal Exam: LINDA x 4 without difficulty Strength Intact, ROM Intact Neurological: Positive: Alert, + sensation throughout Psychological: Positive: Normal Response To Family Skin: Positive: no rash, no ecchymosis Triage Information Reviewed: Yes Vital Signs: Initial Vital Signs Temp 98.3 F 02/27/18 09:24 Pulse 95 02/27/18 09:24 Resp 17 02/27/18 09:24 BP 131/96 02/27/18 09:24 Pulse Ox 97 02/27/18 09:24 UC Diagnostic Evaluation - Laboratory O2 Sat by Pulse Oximetry: 97 Re-Evaluation - Re-Evaluation First Eval Change: Improved - Patient Rob improved following that. No ongoing cough. Very scant diffuse expiratory wheezes. We'll prescribe albuterol with MDI. Will prescribe prednisone, Tessalon Perles, and amoxicillin. Patient declines medication increased infection. Patient states she's had amoxicillin despite her allergy to cefaclor without difficulty. Patient comfortable in agreement with plan. Encourage patient to decrease smoking. Discussed with patient secretion precautions. Respiratory Course/Dx - Course Course Of Treatment: Patient presents to urgent care reporting progressive cough with yellow-green sputum. Patient with wheezy. Patient has been taking DayQuil and NyQuil short-term relief. On exam vital signs stable. Patient noted to have diffuse inspiratory and expiratory wheezes. Patient with a coarse cough. We'll give a DuoNeb. If easing improves will hold on chest x- ray. Anticipate we'll prescribe prednisone, albuterol, antibiotics. Patient requesting Tessalon Perles and support in the past. Patient comfortable with plan. - Differential Dx/Diagnosis Provider Diagnoses: acute bronchitis Discharge - Sign-Out/Discharge Documenting (check all that apply): Patient Departure All imaging exams completed and their final reports reviewed: No - Discharge Plan Condition: Stable Disposition: HOME Prescriptions: Albuterol HFA INHALER* [Ventolin HFA Inhaler*] 2 puff INH Q4H PRN #1 mdi PRN Reason: wheeze Amoxicillin PO (*) [Amoxicillin 500 MG CAP*] 500 mg PO Q12H #20 cap Benzonatate CAP* [Tessalon 100 MG CAP*] 100 mg PO TID PRN #30 cap PRN Reason: Cough Inhaler, Assist Devices [Aerochamber Mv] 1 each PO Q4HR #1 spacer predniSONE TAB* [Deltasone 20 MG TAB*] 40 mg PO DAILY #10 tab Patient Education Materials: Acute Bronchitis (ED) Referrals: No Primary Care Phys,NOPCP [Primary Care Provider] - [facility] [place] [facility] [Outside] Additional Instructions: - Take antibiotics exactly as prescribed until gone - Use your albuterol puffer - 2 puffs ever 4 hours for the next 2 days - then as needed - Take prednisone as prescribed until gone - Take cough medication or tessalon pearls for coughing -Stay well hydrated - avoid excess caffeine and all alcohol - eat regular, healthy meals - - These infections are spread by secretions - do NOT share eating or drinking utensils - clean items you share with other people such as cell phones, computer mouse, TV remote, computer tablets,etc. Once you have been antibiotics for 2 days, change your toothbrush and your pillowcase. - Work to decrease cigarette smoke -Contact your doctor to arrange a follow-up appointment this week. Call your doctor, return here or go to the emergency department with any questions or concerns - Billing Disposition and Condition Condition: STABLE Disposition: Home
[2018-02-27] MEDS ORDERED: Albuterol/Ipratropium NEB.SOL* Albuterol 2.5 MG/Ipratropium 0.5 MG 3 ML INH ONE (09:38)
--- NOTE | 2018-02-27 11:14 | UC ---
Re-Evaluation - Re-Evaluation First Eval Change: Improved - Patient Rob improved following that. No ongoing cough. Very scant diffuse expiratory wheezes. We'll prescribe albuterol with MDI. Will prescribe prednisone, Tessalon Perles, and amoxicillin. Patient declines medication increased infection. Patient states she's had amoxicillin despite her allergy to cefaclor without difficulty. Patient comfortable in agreement with plan. Encourage patient to decrease smoking. Discussed with patient secretion precautions. Discharge - Sign-Out/Discharge Documenting (check all that apply): Post-Discharge Follow Up All imaging exams completed and their final reports reviewed: No Studies - Discharge Plan Condition: Stable Disposition: HOME Prescriptions: Albuterol HFA INHALER* [Ventolin HFA Inhaler*] 2 puff INH Q4H PRN #1 mdi PRN Reason: wheeze Amoxicillin PO (*) [Amoxicillin 500 MG CAP*] 500 mg PO Q12H #20 cap Benzonatate CAP* [Tessalon 100 MG CAP*] 100 mg PO TID PRN #30 cap PRN Reason: Cough Inhaler, Assist Devices [Aerochamber Mv] 1 each PO Q4HR #1 spacer predniSONE TAB* [Deltasone 20 MG TAB*] 40 mg PO DAILY #10 tab Patient Education Materials: Acute Bronchitis (ED) Referrals: [facility] [Outside] No Primary Care Phys,NOPCP [Primary Care Provider] - Additional Instructions: - Take antibiotics exactly as prescribed until gone - Use your albuterol puffer - 2 puffs ever 4 hours for the next 2 days - then as needed - Take prednisone as prescribed until gone - Take cough medication or tessalon pearls for coughing -Stay well hydrated - avoid excess caffeine and all alcohol - eat regular, healthy meals - - These infections are spread by secretions - do NOT share eating or drinking utensils - clean items you share with other people such as cell phones, computer mouse, TV remote, computer tablets,etc. Once you have been antibiotics for 2 days, change your toothbrush and your pillowcase. - Work to decrease cigarette smoke -Contact your doctor to arrange a follow-up appointment this week. Call your doctor, return here or go to the emergency department with any questions or concerns - Billing Disposition and Condition Condition: STABLE Disposition: Home
== END 2018-02-27 10:15 | disposition home or self-care (01) ==
LOC: UCCORT 09:02
DX: J20.9 Acute bronchitis, unspecified (principal); Z88.5 Allergy status to narcotic agent; Z88.1 Allergy status to other antibiotic agents; Z91.040 Latex allergy status; F17.210 Nicotine dependence, cigarettes, uncomplicated
CPT/HCPCS: 99212; A9270-GY; G0463

== ENCOUNTER 2018-08-27 09:38 | Emergency (ER) | payer MEDICARE, MEDICAID ==
[2018-08-27 10:22] VITALS: BP 115/72
--- NOTE | 2018-08-27 10:33 | UC ---
Respiratory Complaint HPI - HPI Summary HPI Summary: Pt presents with c/o cough X 4 weeks. Pt reports that she was hospitalized for flu but now c/o cough that will not go away. - History of Current Complaint Chief Complaint: UCRespiratory Stated Complaint: COUGH Time Seen by Provider: 08/27/18 10:28 Hx Obtained From: Patient Hx Last Menstrual Period: 07/2018 ?: No Onset/Duration: Gradual Onset, Lasting Weeks, Still Present, Worse Since - onset Timing: Constant Severity Initially: Moderate Severity Currently: Moderate Pain Intensity: 4 Character: Cough: Nonproductive Aggravating Factors: Exertion, Deep Breaths, Recumbent Position Alleviating Factors: Nothing Associated Signs And Symptoms: Positive: Wheezing, URI - Risk Factors Pulmonary Embolism Risk Factors: Smoking Cardiac Risk Factors: Smoking Pseudomonas Risk Factors: Negative Tuberculosis Risk Factors: Negative - Allergies/Home Medications Allergies/Adverse Reactions: Allergies Allergy/AdvReac Type Severity Reaction Status Date / Time cefaclor Allergy Rash Verified 08/27/18 10:19 latex Allergy Rash Verified 08/27/18 10:19 sumatriptan Allergy See Comment Verified 08/27/18 10:19 avoids opioids Allergy hx of abuse Uncoded 08/27/18 10:19 Home Medications: Home Medications Acetaminophen [Tylenol Extra Strength] 1,000 mg PO ONCE PRN 08/27/18 [History Confirmed 08/27/18] guaiFENesin [Cough Syrup] 1 dose PO ONCE PRN 08/27/18 [History Confirmed ] PMH/Surg Hx/FS Hx/Imm Hx Previously Healthy: Yes Respiratory History: Other - everyday smoker Other History Of: Negative For: HIV, Hepatitis B, Hepatitis C - Surgical History Surgical History: Yes Surgery Procedure, Year, and Place: Tubal Ligation, 2009, [facility] - Family History Known Family History: Positive: Cardiac Disease, Hypertension, Diabetes, Respiratory Disease - Mom with COPD, Other - COPD Family History: Mother had COPD - Social History Occupation: Employed Full-time Lives: With Family Alcohol Use: None Substance Use Type: None Substance Use Comment - Amount & Last Used: Denies use of prescription painkillers. Smoking Status (MU): Heavy Every Day Tobacco Smoker Type: Cigarettes Amount Used/How Often: 1 PPD Length of Time of Smoking/Using Tobacco: 22 Years Have You Smoked in the Last Year: Yes Household Exposure Type: Cigarettes - Immunization History Most Recent Influenza Vaccination: 02/20/15 Hx Tetanus, Diphtheria Vaccination: Yes Vaccination Up to Date: Yes Review of Systems All Other Systems Reviewed And Are Negative: Yes Constitutional: Positive: Fatigue Skin: Positive: Negative Eyes: Positive: Negative ENT: Positive: Negative Respiratory: Positive: Cough Cardiovascular: Positive: Negative Gastrointestinal: Positive: Negative Genitourinary: Positive: Negative Motor: Positive: Negative Neurovascular: Positive: Negative Musculoskeletal: Positive: Myalgia - ribs and chest with cough Neurological: Positive: Negative Psychological: Positive: Negative Is Patient Immunocompromised?: No Physical Exam Triage Information Reviewed: Yes Appearance: Ill-Appearing Vital Signs: Initial Vital Signs Temp 98.6 F 08/27/18 10:16 Pulse 88 08/27/18 10:16 Resp 24 08/27/18 10:16 BP 115/72 08/27/18 10:16 Pulse Ox 97 08/27/18 10:16 Vital Signs Reviewed: Yes Eye Exam: Normal ENT: Positive: Nasal congestion Dental Exam: Normal Neck exam: Normal Respiratory: Positive: No respiratory distress, Wheezing Cardiovascular Exam: Normal Musculoskeletal Exam: Normal Neurological Exam: Normal Psychological Exam: Normal Skin Exam: Normal Respiratory Course/Dx - Differential Dx/Diagnosis Differential Diagnosis/HQI/PQRI: Bronchitis, Exacerbation Of COPD, Influenza Provider Diagnosis: COPD exacerbation Discharge - Sign-Out/Discharge Documenting (check all that apply): Patient Departure All imaging exams completed and their final reports reviewed: No Studies - pt refused chest - Discharge Plan Condition: Stable Disposition: HOME Prescriptions: Albuterol HFA INHALER* [Ventolin HFA Inhaler*] 1 - 2 puff INH Q4H PRN #1 mdi PRN Reason: Wheezing Azithromycin TAB* [Zithromax TAB (Z-BLAISE) 250 mg #6 tabs] 2 tab PO .TODAY, THEN 1 DAILY #1 blaise Benzonatate CAP* [Tessalon 100 MG CAP*] 200 mg PO Q8H PRN #30 cap PRN Reason: Cough predniSONE TAB* [Deltasone 10 MG TAB*] 30 mg PO DAILY #12 tab Patient Education Materials: Acute Cough (ED) Referrals: Elier Gtz MD [Primary Care Provider] - As Soon As Possible Additional Instructions: Please follow up with your PCP as soon as possible. - Billing Disposition and Condition Condition: STABLE Disposition: Home - Attestation Statements Provider Attestation: I was available for consult. This patient was seen by the MARY. The patient was not presented to, seen by, or examined by me. EK
== END 2018-08-27 10:45 | disposition home or self-care (01) ==
LOC: UCCORT 09:38
DX: J44.1 Chronic obstructive pulmonary disease with (acute) exacerbation (principal); F17.210 Nicotine dependence, cigarettes, uncomplicated; Z88.1 Allergy status to other antibiotic agents; Z91.040 Latex allergy status; Z88.8 Allergy status to other drugs, medicaments and biological substances; Z88.5 Allergy status to narcotic agent; Z82.5 Family history of asthma and other chronic lower respiratory diseases
CPT/HCPCS: 99212; G0463

== ENCOUNTER 2018-09-01 09:01 | Emergency (ER) | payer MEDICARE, MEDICAID ==
[2018-09-01 09:57] VITALS: BP 108/72
--- NOTE | 2018-09-01 10:16 | UC ---
Respiratory Complaint HPI - HPI Summary HPI Summary: 37-year-old female presents with complaints of persistent cough. She was seen at this facility for 11/10/18 and diagnosed with a exacerbation of her COPD and treated with a course of azithromycin, prescribed a short course of prednisone, and given albuterol inhaler to use as needed. Patient states that her symptoms did improve while on the prednisone however took her last dose yesterday and started noticing some worsening of her symptoms again today. She continues to have some moderate nasal congestion, postnasal drip, mild shortness of breath, and occasional wheezing. Also complains of some mild chest wall discomfort with cough. She is using her albuterol inhaler approximately 3 times a day. She has follow-up with her primary care provider scheduled in 4 days. Denies fever, chills, ear pain, sore throat, abdominal pain, nausea, or vomiting. - History of Current Complaint Chief Complaint: UCRespiratory Stated Complaint: COUGH,CONGESTION Time Seen by Provider: 09/01/18 10:06 Hx Obtained From: Patient Hx Last Menstrual Period: 07/2018 Pain Intensity: 4 - Allergies/Home Medications Allergies/Adverse Reactions: Allergies Allergy/AdvReac Type Severity Reaction Status Date / Time cefaclor Allergy Rash Verified 09/01/18 09:55 latex Allergy Rash Verified 09/01/18 09:55 sumatriptan Allergy See Comment Verified 09/01/18 09:55 avoids opioids Allergy hx of abuse Uncoded 09/01/18 09:55 PMH/Surg Hx/FS Hx/Imm Hx Respiratory History: COPD Psychological History: Depression Other History Of: Negative For: HIV, Hepatitis B, Hepatitis C - Surgical History Surgical History: Yes Surgery Procedure, Year, and Place: Tubal Ligation, 2009, [facility] - Family History Known Family History: Positive: Cardiac Disease, Hypertension, Diabetes, Respiratory Disease - Mom with COPD, Other - COPD Family History: Mother had COPD - Social History Occupation: Disabled Lives: With Family Alcohol Use: None Substance Use Type: None Substance Use Comment - Amount & Last Used: Denies use of prescription painkillers. Smoking Status (MU): Heavy Every Day Tobacco Smoker Type: Cigarettes Amount Used/How Often: 1 PPD Length of Time of Smoking/Using Tobacco: 22 Years Have You Smoked in the Last Year: Yes Household Exposure Type: Cigarettes - Immunization History Most Recent Influenza Vaccination: 02/20/15 Hx Tetanus, Diphtheria Vaccination: Yes Vaccination Up to Date: Yes Review of Systems All Other Systems Reviewed And Are Negative: Yes Constitutional: Negative: Fever, Chills Skin: Negative: Rash Eyes: Negative: Drainage, Eye Redness ENT: Positive: Nasal Discharge, Sinus Congestion. Negative: Sore Throat, Ear Ache, Sinus Pain/Tenderness Respiratory: Positive: Shortness Of Breath, Cough, Other - Wheezing Cardiovascular: Positive: Other - Chest wall pain. Negative: Palpitations, Chest Pain Gastrointestinal: Negative: Abdominal Pain, Vomiting, Diarrhea, Nausea Genitourinary: Positive: Negative Musculoskeletal: Positive: Negative Neurological: Positive: Negative Is Patient Immunocompromised?: No Physical Exam - Summary Physical Exam Summary: GENERAL APPEARANCE: Well developed, well nourished, alert and cooperative, and appears to be in no acute distress. EYES: Conjunctiva clear. No drainage. PERRL, EOM intact. EARS: External auditory canals and tympanic membranes clear, hearing grossly intact. NOSE: Moderate nasal congestion. No nasal discharge. THROAT: Mild pharyngeal erythema with postnasal drip. No tonsilar swelling or exudate. Uvula midline. NECK: Neck supple, non-tender without lymphadenopathy. CARDIAC: Normal S1 and S2. No S3, S4 or murmurs. Rhythm is regular. There is no peripheral edema, cyanosis or pallor. Extremities are warm and well perfused. Capillary refill is less than 2 seconds. Peripheral pulses intact. LUNGS: Clear to auscultation without rales, rhonchi, wheezing or diminished breath sounds. Dry, bronchospastic cough. ABDOMEN: Positive bowel sounds. Soft, nondistended, nontender. No guarding or rebound. No masses or hepatosplenomegally. MUSKULOSKELETAL: ROM intact to all extremities. No joint erythema or tenderness. Normal muscular development. Normal gait. SKIN: Skin normal color, texture and turgor with no lesions or eruptions. Triage Information Reviewed: Yes Vital Signs: Initial Vital Signs Temp 98.0 F 09/01/18 09:51 Pulse 79 09/01/18 09:51 Resp 20 09/01/18 09:51 BP 108/72 09/01/18 09:51 Pulse Ox 95 09/01/18 09:51 Vital Signs Reviewed: Yes Respiratory Course/Dx - Course Course Of Treatment: 37-year-old female presents with complaints of persistent cough. She was seen at this facility for 11/10/18 and diagnosed with a exacerbation of her COPD and treated with a course of azithromycin, prescribed a short course of prednisone, and given albuterol inhaler to use as needed. Patient states that her symptoms did improve while on the prednisone however took her last dose yesterday and started noticing some worsening of her symptoms again today. She continues to have some moderate nasal congestion, postnasal drip, mild shortness of breath, and occasional wheezing. Also complains of some mild chest wall discomfort with cough. She is using her albuterol inhaler approximately 3 times a day. She has follow-up with her primary care provider scheduled in 4 days. Denies fever, chills, ear pain, sore throat, abdominal pain, nausea, or vomiting. Afebrile. Vital signs stable. Exam was remarkable for some moderate nasal congestion with postnasal drip, mild pharyngeal erythema, clear bilateral breath sounds, and a harsh bronchospastic cough. I will continue the patient on a prednisone taper considering her underlying COPD and she reported improvement in her symptoms while taking. Discussed with patient that additional antibiotics are probably warranted at this time as she has just completed her course of Zithromax. She is to continue to use Tessalon Perles as needed for cough as well as use her albuterol inhaler as needed for shortness of breath and wheezing. She is to keep her appointment with her primary care provider as scheduled on 09/05/2018. Despite evidence at warning symptoms reviewed with the patient. Verbalizes understanding and agrees with plan of care. - Differential Dx/Diagnosis Differential Diagnosis/HQI/PQRI: Airway Obstruction, Bronchitis, Lower Resp Infection, Other - URI Provider Diagnosis: Acute bronchitis with COPD Discharge - Sign-Out/Discharge Documenting (check all that apply): Patient Departure All imaging exams completed and their final reports reviewed: No Studies - Discharge Plan Condition: Stable Disposition: HOME Prescriptions: predniSONE TAB* [Deltasone 10 MG TAB*] 10 mg PO DAILY #30 tab Patient Education Materials: Acute Bronchitis (ED), COPD (Chronic Obstructive Pulmonary Disease) (ED) Referrals: Elier Gtz MD [Primary Care Provider] - 4 Days (Keep your appointment as scheduled on 09/05/2018) Additional Instructions: Your history and exam are consistent with acute bronchitis with exacerbation of your COPD. Since you were already treated with an antibiotic I do not feel additional antibiotics are necessary at this time. We will continue you on a prednisone taper. Take 40 mg (4 tabs) daily for 3 days , 30 mg (3 tabs) daily for 3 days, 20 mg (2 tabs) daily for 3 days, then 10 mg ( 1 tab) daily for 3 days. I would recommend using an over the counter decongestant such as Sudafed to help with the nasal congestion and post-nasal drip. Be aware that the cough with bronchitis may persist for 2-3 weeks even if other symptoms have improved. Get plenty of rest. Drink plenty of fluids. Run a cool mist humidifer in your room at night. Take over the counter acetaminophen (Tylenol) or ibuprofen (Advil, Motrin) according to directions as needed for pain or fever. Continue to use the Tessalon Perles 1 cap every 8 hours as needed for cough. Follow up with your primary care provider on Wednesday as scheduled. Seek immediate medical attention in the emergency room if you have fever greater than 100.5 F despite taking acetaminophen or ibuprofen, have chest pain , difficulty breathing, or have any worsening of symptoms. - Billing Disposition and Condition Condition: STABLE Disposition: Home - Attestation Statements Provider Attestation: I was available for consult. This patient was seen by the MARY. The patient was not presented to, seen by, or examined by me. -Marcelo
== END 2018-09-01 10:37 | disposition home or self-care (01) ==
LOC: UCCORT 09:01
DX: J20.9 Acute bronchitis, unspecified (principal); J44.0 Chronic obstructive pulmonary disease with (acute) lower respiratory infection; Z88.5 Allergy status to narcotic agent; Z88.8 Allergy status to other drugs, medicaments and biological substances; Z88.1 Allergy status to other antibiotic agents; Z91.040 Latex allergy status; Z82.49 Family history of ischemic heart disease and other diseases of the circulatory system; Z83.6 Family history of other diseases of the respiratory system; Z83.3 Family history of diabetes mellitus; F17.210 Nicotine dependence, cigarettes, uncomplicated
CPT/HCPCS: 99212; G0463

== ENCOUNTER 2018-09-06 19:42 | Emergency (ER) | payer MEDICARE, MEDICAID ==
[2018-09-06 20:36] VITALS: BP 111/63
--- NOTE | 2018-09-06 21:05 | UC ---
Respiratory Complaint HPI - HPI Summary HPI Summary: 37 YO female admitted to [facility] on 08/05 for influenza Hospitalized x 4 days cough persists laryngitis sore throat no fever or chills has copd just finished long prednisone taper - History of Current Complaint Chief Complaint: UCGeneralIllness Stated Complaint: COUGH/CONGESTION Time Seen by Provider: 09/06/18 20:52 Hx Obtained From: Patient Hx Last Menstrual Period: August 15 Onset/Duration: Gradual Onset, Lasting Weeks Timing: Constant Severity Initially: Mild Severity Currently: Moderate Pain Intensity: 4 Pain Scale Used: 0-10 Numeric Character: Cough: Nonproductive Aggravating Factors: Nothing Alleviating Factors: Nothing Associated Signs And Symptoms: Positive: Nasal Congestion, Hoarseness - Allergies/Home Medications Allergies/Adverse Reactions: Allergies Allergy/AdvReac Type Severity Reaction Status Date / Time cefaclor Allergy Rash Verified 09/06/18 20:36 latex Allergy Rash Verified 09/06/18 20:36 sumatriptan Allergy See Comment Verified 09/06/18 20:36 avoids opioids Allergy hx of abuse Uncoded 09/06/18 20:36 PMH/Surg Hx/FS Hx/Imm Hx Previously Healthy: Yes Respiratory History: COPD, Bronchitis, Pneumonia Other History Of: Negative For: HIV, Hepatitis B, Hepatitis C - Surgical History Surgical History: Yes Surgery Procedure, Year, and Place: Tubal Ligation, 2009, [facility] - Family History Known Family History: Positive: Cardiac Disease, Hypertension, Diabetes, Respiratory Disease - Mom with COPD, Other - COPD Family History: Mother had COPD - Social History Alcohol Use: None Substance Use Type: None Substance Use Comment - Amount & Last Used: Denies use of prescription painkillers. Smoking Status (MU): Heavy Every Day Tobacco Smoker Type: Cigarettes Amount Used/How Often: 1/2 ppd Length of Time of Smoking/Using Tobacco: 22 Years Have You Smoked in the Last Year: Yes Household Exposure Type: Cigarettes - Immunization History Most Recent Influenza Vaccination: 02/20/15 Hx Tetanus, Diphtheria Vaccination: Yes Vaccination Up to Date: Yes Review of Systems All Other Systems Reviewed And Are Negative: Yes Constitutional: Positive: Fatigue Skin: Positive: Negative Eyes: Positive: Negative ENT: Positive: Negative Respiratory: Positive: Cough Cardiovascular: Positive: Negative Gastrointestinal: Positive: Negative Genitourinary: Positive: Negative Motor: Positive: Negative Neurovascular: Positive: Negative Musculoskeletal: Positive: Negative Neurological: Positive: Negative Psychological: Positive: Negative Physical Exam Triage Information Reviewed: Yes Appearance: Well-Appearing, No Pain Distress, Well-Nourished Vital Signs: Initial Vital Signs Temp 98.4 F 09/06/18 20:27 Pulse 57 09/06/18 20:27 Resp 20 09/06/18 20:27 BP 111/63 09/06/18 20:27 Pulse Ox 97 09/06/18 20:27 Vital Signs Reviewed: Yes Eyes: Positive: Conjunctiva Clear ENT: Positive: Hearing grossly normal, Pharyngeal erythema, Nasal congestion, Hoarse voice. Negative: Nasal drainage, Tonsillar swelling, Tonsillar exudate, Trismus, Muffled voice Neck: Positive: Supple, Nontender Respiratory: Positive: Normal breath sounds, No respiratory distress, Wheezing - with forced expiration Cardiovascular: Positive: RRR, No Murmur Musculoskeletal: Positive: ROM Intact, No Edema Neurological: Positive: Alert Psychological Exam: Normal Skin Exam: Normal Diagnostics - Radiology No standard instances Radiology Interpretation Completed By: ED Physician Summary of Radiographic Findings: ?RLL infiltrate Respiratory Course/Dx - Differential Dx/Diagnosis Provider Diagnosis: Bronchitis Discharge - Sign-Out/Discharge Documenting (check all that apply): Patient Departure All imaging exams completed and their final reports reviewed: No - Discharge Plan Condition: Stable Disposition: HOME Prescriptions: Amoxicillin PO (*) [Amoxicillin 875 MG (*)] 875 mg PO BID #14 tab Benzonatate CAP* [Tessalon CAP*] 100 - 200 mg PO TID PRN #28 cap PRN Reason: Cough Patient Education Materials: Acute Bronchitis (ED) Referrals: Elier Gtz MD [Primary Care Provider] - As Soon As Possible Additional Instructions: the official xr reading is pending you may have an early pneumonia recheck for new or worsening symptoms - Billing Disposition and Condition Condition: STABLE Disposition: Home
[2018-09-06] MEDS ORDERED: Benzonatate CAP* 100 MG PO ONE (21:42)
[2018-09-06] MEDS ORDERED: Amoxicillin PO (*) 500 MG CAP PO ONE (21:42)
[2018-09-06] MEDS ORDERED: Albuterol HFA INHALER* 8 gm MDI INH ONE (21:43)
--- NOTE | 2018-09-07 19:30 | UC ---
- Progress Note Progress Note: Radiologist reading from September 06, 2018 the chest x-ray is read as bilateral atelectasis. The provider from that day had a question of right lower lobe infiltrate and treated the patient with amoxicillin and diagnosed the patient with bronchitis. The question of atelectasis versus infiltrate does not change treatment at this time therefore there is no discrepancy. Course/Dx - Diagnoses Provider Diagnoses: Bronchitis Discharge - Sign-Out/Discharge Documenting (check all that apply): Patient Departure All imaging exams completed and their final reports reviewed: Yes - Discharge Plan Condition: Stable Disposition: HOME Prescriptions: Amoxicillin PO (*) [Amoxicillin 875 MG (*)] 875 mg PO BID #14 tab Benzonatate CAP* [Tessalon CAP*] 100 - 200 mg PO TID PRN #28 cap PRN Reason: Cough Patient Education Materials: Acute Bronchitis (ED) Referrals: Elier Gtz MD [Primary Care Provider] - As Soon As Possible Additional Instructions: the official xr reading is pending you may have an early pneumonia recheck for new or worsening symptoms - Billing Disposition and Condition Condition: STABLE Disposition: Home
== END 2018-09-06 22:00 | disposition home or self-care (01) ==
LOC: UCCORT 19:42
DX: J44.9 Chronic obstructive pulmonary disease, unspecified (principal); Z88.5 Allergy status to narcotic agent; Z88.8 Allergy status to other drugs, medicaments and biological substances; Z88.1 Allergy status to other antibiotic agents; Z91.040 Latex allergy status; F17.210 Nicotine dependence, cigarettes, uncomplicated
CPT/HCPCS: 71046; 99213; A9270-GY; G0463